=== PATIENT | female | born 1985 | race Two or more races ===

== ENCOUNTER 2017-07-04 18:39 | Emergency (ER) | payer OTHER ==
--- NOTE | 2017-07-04 19:08 | ER Document Report ---
ED Medical Screen (RME) - General Chief Complaint: Rib Pain Stated Complaint: RIB PAIN Time Seen by Provider: 07/04/17 19:06 Mode of Arrival: Ambulatory Information source: Patient Notes: This is a 31-year-old female that presents to the emergency room with right chest wall pain with deep inspiration. Patient states she was evaluated recently at [facility] for abdominal pain and diagnosed with a migrated IUD. She states that the IUD was removed in the emergency room and the patient was sent home on pain medicine and antibiotics. Patient states that her abdominal pain is improved but she knows has shortness of breath when she takes in a deep breath and right rib pain when she takes in a deep breath. TRAVEL OUTSIDE OF THE [place] IN LAST 30 DAYS: No - Related Data Allergies/Adverse Reactions: No Known Allergies Allergy (Unverified 07/04/17 18:50) Past Medical History Renal/ Medical History: Denies: Hx Peritoneal Dialysis Physical Exam - Vital signs Vitals: Temp Pulse Resp BP Pulse Ox 98.0 F 111 H 24 H 124/67 100 07/04/17 18:50 07/04/17 18:50 07/04/17 18:50 07/04/17 18:50 07/04/17 18:50 Course - Vital Signs Vital signs: Temp Pulse Resp BP Pulse Ox 98.0 F 111 H 24 H 124/67 100 07/04/17 18:50 07/04/17 18:50 07/04/17 18:50 07/04/17 18:50 07/04/17 18:50
[2017-07-04 19:52] LABS: APPEARANCE,URINE SLIGHTLY-CLOUDY; BILIRUBIN,URINE SMALL (NEGATIVE); GLUCOSE, URINE NEGATIVE (NEGATIVE); KETONES,URINE TRACE mg/dL (NEGATIVE); LEUKOCYTE ESTERASE,URINE NEGATIVE (NEGATIVE); NITRITE,URINE NEGATIVE (NEGATIVE); PROTEIN,URINE 100 mg/dL (NEGATIVE); URINE SPECIFIC GRAVITY 1.035
[2017-07-04 20:00] LABS: ABSOLUTE EOSINOPHILS # (AUTO) 0.2 10^3/uL (0.0-0.6); ABSOLUTE LYMPHOCYTES (AUTO) 0.9 10^3/uL (0.5-4.7); ABSOLUTE MONOCYTES (AUTO) 0.4 10^3/uL (0.1-1.4); ABSOLUTE NEUT (AUTO) 8.9 10^3/uL (1.7-8.2); BASOPHILS % (AUTO) 0.2 % (0-2); EOSINOPHILS % (AUTO) 1.4 % (0-6); HEMATOCRIT 28.5 % (36.0-47.0); HEMOGLOBIN 10.3 g/dL (12.0-15.5); HGB HCT DIFFERENCE 2.4; LYMPHOCYTES % (AUTO) 8.7 % (13-45); MEAN CORPUSCULAR HEMOGLOBIN 34.4 pg (27.0-33.4); MEAN CORPUSCULAR HGB CONC 36.3 g/dL (32.0-36.0); MEAN CORPUSCULAR VOLUME 95 fl (80-97); MONOCYTES % (AUTO) 4.2 % (3-13); RED CELL DISTRIBUTION WIDTH 12.4 % (11.5-14.0); SEGMENTED NEUTROPHILS % (AUTO) 85.5 % (42-78); WHITE BLOOD COUNT 10.4 10^3/uL (4.0-10.5)
[2017-07-04 20:21] LABS: ALANINE AMINOTRANSFERASE 34 U/L (9-52); ALBUMIN 3.6 g/dL (3.5-5.0); ALKALINE PHOSPHATASE 99 U/L (38-126); ANION GAP 14 (5-19); ASPARTATE AMINO TRANSFERASE 19 U/L (14-36); BILIRUBIN,DIRECT 0.4 mg/dL (0.0-0.4); BILIRUBIN,TOTAL 0.6 mg/dL (0.2-1.3); BLOOD UREA NITROGEN 10 mg/dL (7-20); CARBON DIOXIDE 25 mmol/L (22-30); CHLORIDE 103 mmol/L (98-107); CREATININE RESULT 0.66 mg/dL (0.52-1.25); GLUCOSE 113 mg/dL (75-110); POTASSIUM 3.4 mmol/L (3.6-5.0); SODIUM 142.4 mmol/L (137-145); TOTAL PROTEIN 6.5 g/dL (6.3-8.2)
--- NOTE | 2017-07-04 20:50 | ER Document Report ---
ED Respiratory Problem - General Chief Complaint: Rib Pain Stated Complaint: RIB PAIN Time Seen by Provider: 07/04/17 19:06 Mode of Arrival: Ambulatory Notes: 31 yo non smoker female c/o right sided chest pain, worse with movement- positioning, inspiration and expiration and cough. [facility] "pain all over her belly", fever 102, CT of abdomen done, found to have gustavo IUD imbedded in endometrium and it was removed. Has vaginal bleeding today. pmh: plastic surgery. IV contrast given yesterday the at 2 pm. spc grav urine 1.035. CT said that she can have the CTA IV contrast again after 24 hours which it has been. No hx anemia, PE or DVT. No anticoagulants. having heavy vaginal bleeding for the 2 years she has had the gustavo IUD. No GI bleed. TRAVEL OUTSIDE OF THE [place] IN LAST 30 DAYS: No - Related Data Allergies/Adverse Reactions: No Known Allergies Allergy (Unverified 07/04/17 18:50) Past Medical History - General Information source: Patient - Social History Smoking Status: Never Smoker Chew tobacco use (# tins/day): No Frequency of alcohol use: None Drug Abuse: None Lives with: Spouse/Significant other Family History: Reviewed & Not Pertinent Renal/ Medical History: Denies: Hx Peritoneal Dialysis Psychiatric Medical History: Reports: Hx Depression - anxiety Surgical Hx: Negative Review of Systems - Review of Systems Constitutional: No symptoms reported EENT: No symptoms reported Cardiovascular: No symptoms reported Respiratory: See HPI Gastrointestinal: No symptoms reported Genitourinary: No symptoms reported Female Genitourinary: No symptoms reported Musculoskeletal: No symptoms reported Skin: No symptoms reported Hematologic/Lymphatic: No symptoms reported Neurological/Psychological: No symptoms reported Physical Exam - Vital signs Vitals: Temp Pulse Resp BP Pulse Ox 98.0 F 111 H 24 H 124/67 100 07/04/17 18:50 07/04/17 18:50 07/04/17 18:50 07/04/17 18:50 07/04/17 18:50 Interpretation: Normal - General General appearance: Appears well, Alert In distress: None - HEENT Head: Normocephalic, Atraumatic Eyes: Normal Conjunctiva: Normal Pupils: PERRL Pharynx: Normal Neck: Supple. No: Lymphadenopathy - Respiratory Respiratory status: No respiratory distress Chest status: Nontender, Tender - lateral right thorax, Pain on movement, Pain with deep breathing. No: No pleuritic chest pain, Accessory muscle use Breath sounds: Normal Chest palpation: Normal - Cardiovascular Rhythm: Regular Heart sounds: Normal auscultation Murmur: No - Abdominal Inspection: Normal Distension: No distension Bowel sounds: Normal Tenderness: Nontender. No: Tender Organomegaly: No organomegaly - Back Back: Normal, Nontender. No: CVA tenderness - Extremities General upper extremity: Normal inspection, Nontender, Normal color, Normal ROM , Normal temperature General lower extremity: Normal inspection, Nontender, Normal color, Normal ROM , Normal temperature, Normal weight bearing. No: Jaclyn's sign - Neurological Neuro grossly intact: Yes Cognition: Normal Orientation: AAOx4 [place] Coma Scale Eye Opening: Spontaneous Liss Coma Scale Verbal: Oriented [place] Coma Scale Motor: Obeys Commands Liss Coma Scale Total: 15 Speech: Normal Motor strength normal: LUE, RUE, LLE, RLE Sensory: Normal - Psychological Associated symptoms: Normal affect, Normal mood - Skin Skin Temperature: Warm Skin Moisture: Dry Skin Color: Normal Skin irregularity: negative: Rash Course - Re-evaluation Re-evalutation: 07/04/17 22:40 CTA is negative her hemoglobin is 10.3 (MCV normal) and we discussed that that she needs to follow-up. Urine culture is pending and will told her we will call her if it grows anything. I explained to her this chest pain must be musculoskeletal pain. She took 1 of her percocet for pain 07/04/17 22:42 07/05/17 00:08 pt called back asking for me with questions about the d-dimer and the fact that it was elevated, did she need to be concerned. The phone call occurred in front of Jake the clinical corporate legal secretary. She is concerned and after my attempts several times to explain the test and the CTA as the definitive test to rule out a PE as the cause of the chest pain, she was very agitated on the phone stating she is seeking a second opinion, does not believe what I was explaining to her. I answered all of her questions at the bedside for discharge and had given her copies of all her labs, and imaging because she was very derogatory about her care at [facility] ER last night. I suspect that she may complain about her care here today as she does not believe what I explained to her. - Vital Signs Vital signs: Temp Pulse Resp BP Pulse Ox 98.2 F 98 18 109/89 H 99 07/04/17 22:56 07/04/17 22:56 07/04/17 22:56 07/04/17 22:56 07/04/17 22:56 - Laboratory Result Diagrams: 07/04/17 19:49 07/04/17 19:49 Laboratory results interpreted by me: 07/04/17 07/04/17 07/04/17 19:00 19:49 19:49 RBC Hgb Hct MCH MCHC Seg Neutrophils % Lymphocytes % Absolute Neutrophils D-Dimer 2.59 H Potassium 3.4 L Glucose 113 H Urine Protein 100 H Urine Ketones TRACE H Urine Blood MODERATE H Urine Bilirubin SMALL H Urine Urobilinogen 4.0 H 07/04/17 19:49 RBC 3.00 L Hgb 10.3 L Hct 28.5 L MCH 34.4 H MCHC 36.3 H Seg Neutrophils % 85.5 H Lymphocytes % 8.7 L Absolute Neutrophils 8.9 H D-Dimer Potassium Glucose Urine Protein Urine Ketones Urine Blood Urine Bilirubin Urine Urobilinogen Discharge - Discharge Clinical Impression: Right-sided chest pain Anemia Qualifiers: Anemia type: unspecified type Qualified Code(s): D64.9 - Anemia, unspecified Condition: Good Disposition: HOME, SELF-CARE Instructions: Anemia ([facility]), Chest Wall Pain ([facility]) Additional Instructions: warm compress to sore area over the counter motrin take multivitamin daily with iron to [place] if worse [place] and recheck of the anemia Please complete the patient satisfaction survey if you get one, and return it.. If you do not receive a survey, then you can go to the [facility] website, [email or web address] and place your comments about your very good care. Thank you very much. It was a pleasure being your medical provider today. Referrals: SWATI BROWN, [Primary Care Provider] - Follow up tomorrow
--- NOTE | 2017-07-04 22:12 | RADIOLOGY REPORT (SQ) ---
EXAM DESCRIPTION: CTA CHEST COMPLETED DATE/TIME: 07/04/2017 9:13 pm REASON FOR STUDY: right chest pain, elevated d dimer COMPARISON: None. TECHNIQUE: CT scan of the chest performed using helical scanning technique with dynamic intravenous contrast injection. Images reviewed with lung, soft tissue and bone windows. Reconstructed coronal and sagittal MPR images reviewed. Additional 3 dimensional post-processing performed to develop Maximal Intensity Projection images (MS P). All images stored on PACS. All CT scanners at this facility use dose modulation, iterative reconstruction, and/or weight based d osing when appropriate to reduce radiation dose to as low as reasonably achievable (ALARA). [facility]: Dose Right [facility]: CareDose [facility]: Dose Right [facility]: Teradose 4D [facility]: OwnerIQ CONTRAST TYPE AND DOSE: contrast/concentration: Isovue 370.00 mg/ml; Total Contrast Delivered: 75.0 ml; Total Saline Delivered: 51.0 ml Contrast bolus optimized for the pulmonary arteries. Not diagnostic for the aorta. RENAL FUNCTION: GFR > 60. RADIATION DOSE: Up-to-date CT equipment and radiation dose reduction techniques were employed. CTDIv ol: 14.3 mGy. DLP: 407 mGy-cm. . LIMITATIONS: None. FINDINGS: LUNGS AND PLEURA: No masses, infiltrates, pneumothorax. No pleural effusions, calcificati ons. AORTA AND GREAT VESSELS: No aneurysm. Contrast bolus not optimized for the aorta. HEART: No pericardial effusion. No significant coronary artery calcifications. PULMONARY ARTERIES: No emboli visualized in the main pulmonary arteries or the segmental branches. HILAR AND MEDIASTINAL STRUCTURES: No identified masses or abnormal nodes. HARDWARE: None in the chest. UPPER ABDOMEN: No significant findings. Limited exam. THYROID AND OTHER SOFT TISSUES: No masses. No adenopathy. BONES: No acute or significant finding. 3D MIPS: Confirm above findings. OTHER: No other significant finding. IMPRESSION: No emboli visualized in the main pulmonary arteries or the segmental branches. COMMENT: Quality ID # [id number]: Final reports with documentation of one or more dose reduction techniques (e.g., Automated exposure control, adjustment of the mA and/or kV according to patient size, use of iterative reconstruction technique) TECHNICAL DOCUMENTATION: JOB ID: [id number] [employer] - [employer]- All Rights Reserved
[2017-07-04 22:59] VITALS: BP 109/89
== END 2017-07-04 22:56 | disposition home or self-care (01) ==
LOC: ER 18:39
DX: R07.9 Chest pain, unspecified (principal); D64.9 Anemia, unspecified; R07.81 Pleurodynia; R05 Cough; R50.9 Fever, unspecified; Z98.890 Other specified postprocedural states
CPT/HCPCS: 36415; 71275; 80053; 81001; 84702; 85025; 85379; 87086; 99284